=== PATIENT | female | born 1960 | race Caucasian/White ===

== ENCOUNTER 2017-07-13 08:00 | Outpatient (CLI) | payer BC ==
[2017-07-13 12:47] LABS: BASOPHILS % (AUTO) 0.6 %; EOSINOPHILS # (AUTO) 0.1 10^3/uL (0.0-0.7); EOSINOPHILS % (AUTO) 2.6 %; HGB - HEMOGLOBIN 13.5 g/dL (12.0-16.0); LYMPHOCYTES # (AUTO) 2.6 10^3/uL (1.5-3.5); LYMPHOCYTES % (AUTO) 47.5 %; MEAN CORPUSCULAR HEMOGLOBIN 30.7 pg (27.0-31.0); MEAN CORPUSCULAR VOLUME 90.2 fL (81.0-99.0); MEAN PLATELET VOLUME 9.7 fL (7.9-10.8); MONOCYTES # (AUTO) 0.3 10^3/uL (0.0-1.0); MONOCYTES % (AUTO) 6.3 %; NEUTROPHILS # (AUTO) 2.4 10^3/uL (1.5-6.6); PLT - PLATELET COUNT 225 10^3/uL (130-450); RED CELL DISTRIBUTION WIDTH 13.1 % (12.0-15.0); WHITE BLOOD COUNT 5.5 x10^3/uL (4.8-10.8)
[2017-07-13 13:39] LABS: HB2 TOTAL 14.7 g/dL; HEMOGLOBIN A1C 0.59 g/dL; HEMOGLOBIN A1C % 5.8 % (4.6-6.2)
[2017-07-13 13:47] LABS: ALBUMIN 4.3 g/dL (3.2-5.5); ALBUMIN/GLOBULIN RATIO 1.6 (1.0-2.2); ALKALINE PHOSPHATASE 74 IU/L (42-121); ALT ALANINE AMINOTRANSFERASE 24 IU/L (10-60); AST ASPARTATE AMINOTRANSFERASE 26 IU/L (10-42); BILIRUBIN,TOTAL 0.6 mg/dL (0.2-1.0); BUN - BLOOD UREA NITROGEN 15 mg/dL (6-20); CALCIUM 8.9 mg/dL (8.5-10.3); CARBON DIOXIDE - CO2 26 mmol/L (21-32); CHLORIDE 109 mmol/L (101-111); CHOL/HDL RATIO 4.1 (<4.4); CHOLESTEROL 233 mg/dL; CREATININE 0.5 mg/dL (0.4-1.0); GFR - MDRD 127 (>89); GLUCOSE 102 mg/dL (70-100); HDL CHOLESTEROL 57 mg/dL; LDL CHOLESTEROL,CALCULATED 144 mg/dL; LDL/HDL RATIO 2.5 (<4.4); SODIUM 138 mmol/L (135-145); VLDL CHOLESTEROL 32 mg/dL
== END 2017-07-13 08:01 | disposition home or self-care (01) ==
LOC: LAB.N 08:00
PROVIDERS: ATTEND Physician Assistant Medical
DX: Z00.00 Encounter for general adult medical examination without abnormal findings (principal)
CPT/HCPCS: 36415; 80053; 80061; 83036; 83721; 84443; 85025

== ENCOUNTER 2017-11-02 16:37 | Outpatient (CLI) | payer BC ==
--- NOTE | 2017-11-03 11:36 | XRAY Report ---
Procedure Date: 11/02/2017 Accession Number: [id number] / [id number] Procedure: XR - Ankle 3 View LT CPT Code: FULL RESULT: EXAM: Ankle 3 View LT DATE: 11/02/2017 4:56 PM CLINICAL HISTORY: CHRONIC L FOOT ANKLE PAIN SWELLING COMPARISON: None. TECHNIQUE: 3 views. FINDINGS: Bones: Plantar and posterior calcaneal spurring. No evidence of fracture. Joints: Degenerative changes. Soft Tissues: Normal. No soft tissue swelling. IMPRESSION: Osteoarthritis. No evidence of acute fracture. [facility]
--- NOTE | 2017-11-03 11:37 | XRAY Report ---
Procedure Date: 11/02/2017 Accession Number: [id number] / [id number] Procedure: XR - Foot 3 View LT CPT Code: FULL RESULT: EXAM: Foot 3 View LT DATE: 11/02/2017 4:56 PM CLINICAL HISTORY: CHRONIC L FOOT AND ANKLE PAIN AND SWELLING COMPARISON: None. TECHNIQUE: 3 views. FINDINGS: Bones: Plantar and posterior calcaneal spurring. No evidence of acute fracture. Joints: Osteoarthritis of the first metatarsophalangeal joint and interphalangeal joints. Soft Tissues: Normal. No soft tissue swelling. IMPRESSION: Degenerative changes. No evidence of acute fracture. [facility]
== END 2017-11-02 16:38 | disposition home or self-care (01) ==
LOC: DI 16:37
PROVIDERS: ATTEND Podiatrist
DX: M19.072 Primary osteoarthritis, left ankle and foot (principal)